=== PATIENT | male | born 1975 ===

== ENCOUNTER 2018-01-26 14:14 | Inpatient (IN) ==
[2018-01-26] MEDS ORDERED: MORPHINE 2 MG/1 ML SYRINGE IV PRN (18:37)
[2018-01-26] MEDS ORDERED: LACTULOSE 20 GM/30 ML UDCUP PO PRN (19:05)
[2018-01-26] MEDS ORDERED: DOCUSATE SODIUM 100 MG CAPSULE PO PRN (19:05)
[2018-01-26 20:18] LABS: Thyroid Stimulating Hormone 2.12 uIU/ml (0.358-3.74)
[2018-01-26] MEDS: PIPERACILLIN/TAZOBACTAM 3,375 MG in SODIUM CHLORIDE 0.9% 100 ML IV SCH (20:29)
[2018-01-26] MEDS: ENOXAPARIN 40 MG/0.4 ML SYRINGE SUBCUT SCH (20:30)
[2018-01-27 05:17] LABS: Basophils % 0.3 % (0.0-0.8); Eosinophils % 0.3 % (0.00-10.9); Hematocrit 34.6 VOL% (42.0-52.0); Hemoglobin 12.1 GM/DL (14.0-18.0); Immature Granulocytes % 0.4 %; Immature Granulocytes Absolute 0.05 #; Lymphocytes % 8.2 % (21.2-54.2); Mean Corpuscular Hemoglobin 30 PG (27-34); Mean Corpuscular Volume 86.7 FL (87-102); Mean Platelet Volume 9.9 FL (9.6-12.0); Monocytes # 1.2 10*3/uL (0.11-0.8); Monocytes % 10.4 % (1.7-12.7); Neutrophils # 9.3 10*3/uL (1.4-7.4); Neutrophils % 80.4 % (38.7-73.9); Platelet Count 209 T/CUMM (130-400); Red Blood Count 3.99 MC/CUMM (3.8-5.5); Red Cell Distribution Width 12.5 % (9.3-17.3); White Blood Count 11.6 T/CUMM (4-12)
[2018-01-27] MEDS: PIPERACILLIN/TAZOBACTAM 3,375 MG in SODIUM CHLORIDE 0.9% 100 ML IV SCH ×3 (05:28→20:03)
[2018-01-27 05:43] LABS: Albumin 2.9 G/DL (3.4-5.0); Bilirubin,Total 1.2 MG/DL (0.2-1.0); Calcium 8.2 MG/DL (8.5-10.1); Osmolality,Calculated 292.1 MOS/KG (273-304); Potassium 4.1 MMOL/L (3.5-5.1); Risk Ratio 2.67; Total Protein 6.4 G/DL (6.4-8.3); VLDL CHOLESTEROL 23.2 MG/DL
[2018-01-27] MEDS: PANTOPRAZOLE 40 MG TABLET PO SCH (09:14)
[2018-01-27] MEDS: ONDANSETRON 4 MG/2 ML VIAL IV PRN (09:17)
[2018-01-27] MEDS: DEXTROSE 5% NACL 0.45% 1,000 ML IV SCH (17:11)
[2018-01-27] MEDS: ENOXAPARIN 40 MG/0.4 ML SYRINGE SUBCUT SCH (21:03)
[2018-01-28] MEDS: PIPERACILLIN/TAZOBACTAM 3,375 MG in SODIUM CHLORIDE 0.9% 100 ML IV SCH ×3 (03:56→20:08)
[2018-01-28 04:54] LABS: Basophils % 0.2 % (0.0-0.8); Eosinophils # 0.1 10*3/uL (0.0-0.87); Eosinophils % 0.8 % (0.00-10.9); Hematocrit 29.9 VOL% (42.0-52.0); Hemoglobin 10.8 GM/DL (14.0-18.0); Immature Granulocytes % 0.5 %; Immature Granulocytes Absolute 0.06 #; Lymphocytes # 1.1 10*3/uL (1.4-4.0); Lymphocytes % 8.9 % (21.2-54.2); Mean Corpuscular HGB Conc 36.1 GM/DL (32-36); Mean Corpuscular Hemoglobin 31 PG (27-34); Mean Corpuscular Volume 84.9 FL (87-102); Mean Platelet Volume 9.6 FL (9.6-12.0); Monocytes % 7.8 % (1.7-12.7); Neutrophils % 81.8 % (38.7-73.9); Platelet Count 186 T/CUMM (130-400); Red Blood Count 3.52 MC/CUMM (3.8-5.5); Red Cell Distribution Width 12.5 % (9.3-17.3); White Blood Count 12.2 T/CUMM (4-12)
[2018-01-28 05:22] LABS: Albumin 2.3 G/DL (3.4-5.0); Bilirubin,Total 0.8 MG/DL (0.2-1.0); Calcium 7.6 MG/DL (8.5-10.1); Osmolality,Calculated 280.4 MOS/KG (273-304); Potassium 3.6 MMOL/L (3.5-5.1); Total Protein 5.7 G/DL (6.4-8.3)
[2018-01-28] MEDS: ONDANSETRON 4 MG/2 ML VIAL IV PRN ×2 (06:37→12:38)
[2018-01-28] MEDS: PANTOPRAZOLE 40 MG TABLET PO SCH (08:21)
[2018-01-28] MEDS ORDERED: PROPOFOL 200 MG/20 ML VIAL IV ONE (10:44)
[2018-01-28] MEDS ORDERED: SEVOFLURANE 1 UNIT/15 MINUTE INH ONE (10:44)
[2018-01-28] MEDS ORDERED: fentaNYL 100 MCG/2 ML VIAL ONE (10:45)
[2018-01-28] MEDS ORDERED: MIDAZOLAM 2 MG/2 ML VIAL ONE (10:45)
[2018-01-28] MEDS ORDERED: ONDANSETRON 4 MG/2 ML VIAL ONE (10:45)
[2018-01-28] MEDS ORDERED: PHENYLEPHRINE 1 MG/10 ML SYRINGE IV ONE (10:45)
[2018-01-28] MEDS ORDERED: ROCURONIUM 100 MG/10 ML VIAL IV ONE (10:46)
[2018-01-28] MEDS ORDERED: LACTATED RINGERS 1,000 ML IV ONE (10:46)
[2018-01-28] MEDS ORDERED: ACETAMINOPHEN 1,000 MG/100 ML VIAL IV ONE (10:46)
[2018-01-28] MEDS: DEXTROSE 5% NACL 0.45% 1,000 ML IV SCH (12:37)
[2018-01-28] MEDS ORDERED: ACETAMINOPHEN 325 MG TABLET PO PRN (17:39)
[2018-01-28] MEDS: ENOXAPARIN 40 MG/0.4 ML SYRINGE SUBCUT SCH (20:09)
[2018-01-29] MEDS: DEXTROSE 5% NACL 0.45% 1,000 ML IV SCH (01:31)
[2018-01-29] MEDS: ONDANSETRON 4 MG/2 ML VIAL IV PRN (01:39)
[2018-01-29] MEDS: PIPERACILLIN/TAZOBACTAM 3,375 MG in SODIUM CHLORIDE 0.9% 100 ML IV SCH (04:15)
[2018-01-29 04:46] LABS: Basophils % 0.2 % (0.0-0.8); Eosinophils % 0.1 % (0.00-10.9); Hematocrit 28.5 VOL% (42.0-52.0); Hemoglobin 10.5 GM/DL (14.0-18.0); Immature Granulocytes % 1.3 %; Immature Granulocytes Absolute 0.16 #; Lymphocytes # 0.6 10*3/uL (1.4-4.0); Lymphocytes % 5.1 % (21.2-54.2); Mean Corpuscular HGB Conc 36.8 GM/DL (32-36); Mean Corpuscular Hemoglobin 31 PG (27-34); Mean Corpuscular Volume 84.8 FL (87-102); Monocytes % 7.8 % (1.7-12.7); Neutrophils # 10.4 10*3/uL (1.4-7.4); Neutrophils % 85.5 % (38.7-73.9); Platelet Count 177 T/CUMM (130-400); Red Blood Count 3.36 MC/CUMM (3.8-5.5); Red Cell Distribution Width 12.4 % (9.3-17.3); White Blood Count 12.2 T/CUMM (4-12)
[2018-01-29 05:12] LABS: Calcium 7.4 MG/DL (8.5-10.1); Osmolality,Calculated 285.1 MOS/KG (273-304); Potassium 3.7 MMOL/L (3.5-5.1)
[2018-01-29] MEDS ORDERED: MAGNESIUM SULF RIDER 2 GM in PREMIX 1 EACH IV PRN (07:55)
[2018-01-29] MEDS ORDERED: MAGNESIUM SULF RIDER 4 GM in PREMIX 1 EACH IV PRN (07:55)
[2018-01-29] MEDS: PANTOPRAZOLE 40 MG TABLET PO SCH (09:38)
[2018-01-29 12:02] VITALS: BP 128/77
== END 2018-01-29 14:35 | disposition home or self-care (01) | DRG 418 ==
LOC: SUATTDRO 16:19 → N.2E 16:19
PROVIDERS: ADMIT Internal Medicine; ATTEND Internal Medicine
PROC: LAPCHOL (2018-01-28 08:30)

== ENCOUNTER 2021-01-19 00:02 | Observation (INO) ==
[2021-01-19] MEDS ORDERED: ACETAMINOPHEN 325 MG TABLET PO PRN (01:56)
[2021-01-19] MEDS ORDERED: GLUCAGON 1 MG VIAL IM PRN ×2 (01:56)
[2021-01-19] MEDS ORDERED: DEXTROSE 50% 25 GM/50 ML VIAL IV PRN ×2 (01:56)
[2021-01-19] MEDS: cephALEXin 500 MG CAPSULE PO SCH ×3 (06:54→22:52)
[2021-01-19 07:41] LABS: Basophils % 0.3 % (0.0-0.8); Eosinophils # 0.1 10*3/uL (0.0-0.87); Eosinophils % 2.2 % (0.00-10.9); Hematocrit 30.1 VOL% (42.0-52.0); Hemoglobin 10.6 GM/DL (14.0-18.0); Immature Granulocytes % 0.5 %; Immature Granulocytes Absolute 0.03 #; Lymphocytes # 1.6 10*3/uL (1.4-4.0); Lymphocytes % 24.4 % (21.2-54.2); Mean Corpuscular HGB Conc 35.2 GM/DL (32-36); Mean Corpuscular Volume 88.3 FL (87-102); Mean Platelet Volume 9.4 FL (9.6-12.0); Monocytes % 8.2 % (1.7-12.7); Neutrophils % 64.4 % (38.7-73.9); Platelet Count 238 T/CUMM (130-400); Red Blood Count 3.41 MC/CUMM (3.8-5.5); Red Cell Distribution Width 12.6 % (9.3-17.3); White Blood Count 6.4 T/CUMM (4-12)
[2021-01-19 08:04] LABS: Alanine Aminotransferase 34 U/L (16-61); Alkaline Phosphatase 101 U/L (45-117); Aspartate Amino Transferase 33 U/L (0-37); Bilirubin,Total < 0.39 MG/DL (0.2-1.0); Blood Urea Nitrogen 22 MG/DL (7-18); Calcium 7.8 MG/DL (8.5-10.1); Carbon Dioxide 24 MMOL/L (21-32); Estimated Glom Filtration Rate 49 ML/MIN; Glucose 261 MG/DL (74-106); Osmolality,Calculated 286.7 MOS/KG (273-304); Potassium 3.7 MMOL/L (3.5-5.1); Sodium 138 MMOL/L (136-145); Total Protein 6.4 G/DL (5.0-7.5)
[2021-01-19] MEDS: amLODIPine 5 MG TABLET PO SCH (08:10)
[2021-01-19] MEDS: PANTOPRAZOLE 40 MG TABLET PO SCH (08:10)
[2021-01-19] MEDS: ENOXAPARIN 40 MG/0.4 ML SYRINGE SUBCUT SCH (08:11)
[2021-01-19] MEDS: INSULIN REGULAR 100 UNIT/ML SUBCUT SCH ×4 (08:11→22:50)
[2021-01-19] MEDS ORDERED: ONDANSETRON 4 MG/2 ML VIAL IV PRN (09:58)
[2021-01-19 10:16] LABS: Risk Ratio 5.05; VLDL CHOLESTEROL 40.6 MG/DL
[2021-01-19 10:32] LABS: CKMB % 3.4 %; Troponin I 0.074 NG/ML (0.00-0.045)
[2021-01-19] MEDS: ROSUVASTATIN 20 MG TABLET PO SCH (11:14)
[2021-01-19] MEDS: ASPIRIN EC 81 MG TABLET PO SCH (11:14)
[2021-01-19 13:47] LABS: CKMB % 3.3 %
[2021-01-19 13:49] LABS: Troponin I 0.086 NG/ML (0.00-0.045)
[2021-01-19] MEDS: carvediloL 3.125 MG TABLET PO SCH ×2 (14:38→22:51)
[2021-01-19] MEDS: GABAPENTIN 100 MG CAPSULE PO SCH (22:51)
[2021-01-19] MEDS: SERTRALINE 25 MG TABLET PO SCH (22:51)
[2021-01-20 05:19] LABS: Basophils % 0.2 % (0.0-0.8); Eosinophils # 0.1 10*3/uL (0.0-0.87); Eosinophils % 1.6 % (0.00-10.9); Hematocrit 31.1 VOL% (42.0-52.0); Hemoglobin 10.8 GM/DL (14.0-18.0); Immature Granulocytes % 0.4 %; Immature Granulocytes Absolute 0.03 #; Lymphocytes # 1.3 10*3/uL (1.4-4.0); Lymphocytes % 16.6 % (21.2-54.2); Mean Corpuscular HGB Conc 34.7 GM/DL (32-36); Mean Corpuscular Volume 88.9 FL (87-102); Mean Platelet Volume 9.6 FL (9.6-12.0); Monocytes % 9.7 % (1.7-12.7); Neutrophils % 71.5 % (38.7-73.9); Platelet Count 243 T/CUMM (130-400); Red Cell Distribution Width 12.5 % (9.3-17.3); White Blood Count 8.1 T/CUMM (4-12)
[2021-01-20] MEDS: cephALEXin 500 MG CAPSULE PO SCH ×3 (05:40→21:04)
[2021-01-20 05:43] LABS: Calcium 8.6 MG/DL (8.5-10.1); Osmolality,Calculated 289.3 MOS/KG (273-304)
[2021-01-20] MEDS: ASPIRIN EC 81 MG TABLET PO SCH (09:43)
[2021-01-20] MEDS: amLODIPine 5 MG TABLET PO SCH (09:44)
[2021-01-20] MEDS: ENOXAPARIN 40 MG/0.4 ML SYRINGE SUBCUT SCH (09:44)
[2021-01-20] MEDS: ROSUVASTATIN 20 MG TABLET PO SCH (09:44)
[2021-01-20] MEDS: INSULIN REGULAR 100 UNIT/ML SUBCUT SCH ×4 (09:44→22:36)
[2021-01-20] MEDS: carvediloL 6.25 MG TABLET PO SCH ×2 (09:44→21:04)
[2021-01-20] MEDS: PANTOPRAZOLE 40 MG TABLET PO SCH (09:44)
[2021-01-20] MEDS: MUPIROCIN 2% OINT 22 GM TUBE TOP SCH ×2 (14:30→21:05)
[2021-01-20] MEDS: CLOTRIMAZOLE 1% CREAM 15 GM TUBE TOP SCH ×2 (15:36→21:05)
[2021-01-20] MEDS: GABAPENTIN 100 MG CAPSULE PO SCH (21:04)
[2021-01-20] MEDS: SERTRALINE 25 MG TABLET PO SCH (21:05)
[2021-01-21 05:39] LABS: Basophils % 0.3 % (0.0-0.8); Eosinophils # 0.2 10*3/uL (0.0-0.87); Eosinophils % 2.5 % (0.00-10.9); Hematocrit 31.8 VOL% (42.0-52.0); Hemoglobin 11.1 GM/DL (14.0-18.0); Immature Granulocytes % 0.6 %; Immature Granulocytes Absolute 0.04 #; Lymphocytes # 1.4 10*3/uL (1.4-4.0); Lymphocytes % 21.2 % (21.2-54.2); Mean Corpuscular HGB Conc 34.9 GM/DL (32-36); Mean Corpuscular Volume 89.1 FL (87-102); Mean Platelet Volume 9.2 FL (9.6-12.0); Monocytes % 9.6 % (1.7-12.7); Neutrophils % 65.8 % (38.7-73.9); Platelet Count 238 T/CUMM (130-400); Red Blood Count 3.57 MC/CUMM (3.8-5.5); Red Cell Distribution Width 12.1 % (9.3-17.3); White Blood Count 6.5 T/CUMM (4-12)
[2021-01-21] MEDS: cephALEXin 500 MG CAPSULE PO SCH (05:44)
[2021-01-21 05:58] LABS: Calcium 8.4 MG/DL (8.5-10.1); Osmolality,Calculated 285.5 MOS/KG (273-304); Potassium 3.8 MMOL/L (3.5-5.1)
[2021-01-21] MEDS ORDERED: TUBERCULIN SKIN TEST 0.1 ML SYRINGE INTRADERM ONE (08:13)
[2021-01-21] MEDS: ENOXAPARIN 40 MG/0.4 ML SYRINGE SUBCUT SCH (10:09)
[2021-01-21] MEDS: INSULIN REGULAR 100 UNIT/ML SUBCUT SCH ×2 (10:09→12:26)
[2021-01-21] MEDS: MUPIROCIN 2% OINT 22 GM TUBE TOP SCH (10:11)
[2021-01-21] MEDS: ASPIRIN EC 81 MG TABLET PO SCH (10:11)
[2021-01-21] MEDS: amLODIPine 5 MG TABLET PO SCH (10:11)
[2021-01-21] MEDS: ROSUVASTATIN 20 MG TABLET PO SCH (10:11)
[2021-01-21] MEDS: PANTOPRAZOLE 40 MG TABLET PO SCH (10:11)
[2021-01-21] MEDS: CLOTRIMAZOLE 1% CREAM 15 GM TUBE TOP SCH (10:12)
[2021-01-21] MEDS: carvediloL 6.25 MG TABLET PO SCH (10:13)
[2021-01-21 12:25] VITALS: BP 158/95
[2021-01-21] MEDS ORDERED: traZODone 50 MG TABLET PO SCH (21:00)
== END 2021-01-21 12:58 ==
LOC: N.TELEN → SUATTDRO 01:26
PROVIDERS: ADMIT Internal Medicine; ATTEND Internal Medicine